=== PATIENT | female | born 1960 | race Caucasian/White ===

== ENCOUNTER 2016-03-14 19:07 | Inpatient (IN) | payer MEDICARE, MEDICAID ==
[~2016-03-14] VITALS: Ht 165.1 cm; Wt 109.1 kg
[~2016-03-14 19:07] MED LIST: DULO60CA44 PO; GABA-531 PO; OMEP20 PO; TRAZ-147 PO
[2016-03-14 20:13] LABS: BASOPHILS % (AUTO) 1.1 % (0.0-2.0); HEMATOCRIT 40.7 % (36-46); HEMOGLOBIN 13.4 g/dL (12.0-16.0); LYMPHOCYTES # (AUTO) 1.3 K/uL (1.0-4.8); LYMPHOCYTES % (AUTO) 26.5 % (22.0-44.0); MEAN CORPUSCULAR HEMOGLOBIN 29.7 pg (26.0-34.0); MEAN CORPUSCULAR HGB CONC 32.9 G/dL (31.0-37.0); MEAN CORPUSCULAR VOLUME 90 fL (80-100); MONOCYTES # (AUTO) 0.4 K/uL (0.1-1.0); MONOCYTES % (AUTO) 7.9 % (2.0-9.0); NEUTROPHILS % (AUTO) 61.5 % (40.0-70.0); PLATELET COUNT (AUTO) 134 K/uL (150-450); RED BLOOD CELL COUNT(AUTO) 4.51 MIL/uL (4.00-5.20); RED CELL DISTRIBUTION WIDTH 13.6 % (11.5-14.5); WHITE BLOOD COUNT (AUTO) 4.9 K/uL (4.5-11.0)
[2016-03-14] MEDS ORDERED: LORazepam 2 MG TABLET PO PRN (20:15)
[2016-03-14] MEDS ORDERED: HALOPERIDOL 5 MG TABLET PO PRN (20:15)
[2016-03-14] MEDS ORDERED: ZOLPIDEM TARTRATE 10 MG TABLET PO PRN (20:15)
[2016-03-14 20:18] LABS: ANION GAP 5 mmol/L (8-16); CALCIUM, TOTAL 8.7 mg/dL (8.8-10.5); CARBON DIOXIDE 29 mmol/L (22-29); CHLORIDE 105 mmol/L (98-107); CREATININE 0.79 mg/dL (0.60-1.30); GLOMERULAR FILTR. RATE CALC > 60 mL/min (>60); POTASSIUM 3.6 mmol/L (3.5-5.1); SODIUM SERUM 139 mmol/L (136-145); UREA NITROGEN, BLOOD 21 mg/dL (7-18)
[2016-03-14 20:23] LABS: ALANINE AMINOTRANSFERASE 24 U/L (12-78); ALBUMIN 3.5 g/dL (3.4-5.0); ASPARTATE AMINOTRANSFERASE 24 U/L (15-37); BILIRUBIN,TOTAL 0.4 mg/dL (0.1-1.0); TOTAL PROTEIN, SERUM 6.5 g/dL (6.4-8.2)
[2016-03-15 10:44] VITALS: BP 119/64
[2016-03-15] MEDS ORDERED: ACETAMINOPHEN 325 MG TABLET PO PRN (15:15)
[2016-03-15] MEDS ORDERED: IBUPROFEN 400 MG TABLET PO PRN (15:15)
[2016-03-15] MEDS ORDERED: INSULIN ASPART 100 UNITS/ML SQ PRN (15:15)
[2016-03-15] MEDS ORDERED: DEXTROSE 50%-WATER 25 GM/50 ML SYRINGE IVP PRN (15:15)
[2016-03-15 17:22] LABS: GLUCOSE,POINT OF CARE 82 MG/DL (70-110)
[2016-03-15 19:55] LABS: GLUCOSE,POINT OF CARE 107 MG/DL (70-110)
[2016-03-16 05:08] LABS: GLUCOSE,POINT OF CARE 90 MG/DL (70-110)
[2016-03-16 05:31] LABS: THYROID STIMULATING HORMONE 0.71 uIU/mL (0.36-3.74)
[2016-03-16 07:26] LABS: HEMOGLOBIN A1C 5.4 % (4.5-6.2)
[2016-03-16] MEDS: OMEPRAZOLE 20 MG CAPSULE PO SCH (09:00)
[2016-03-16 11:56] LABS: GLUCOSE,POINT OF CARE 106 MG/DL (70-110)
[2016-03-16] MEDS ORDERED: HALOPERIDOL LACTATE 5 MG/ML VIAL IM ONE (13:45)
[2016-03-16] MEDS ORDERED: DiphenhydrAMINE HCL 50 MG/ML VIAL IM ONE (13:45)
[2016-03-16] MEDS ORDERED: LORazepam 2 MG/ML VIAL IM ONE (13:45)
[2016-03-16 16:43] VITALS: BP 120/69
[2016-03-16 17:31] LABS: GLUCOSE,POINT OF CARE 95 MG/DL (70-110)
[2016-03-17 05:21] LABS: GLUCOSE COMMENT 1 Juice/Food/D50 Given; GLUCOSE,POINT OF CARE 87 MG/DL (70-110)
[2016-03-17 05:31] VITALS: BP 108/61
[2016-03-17] MEDS: OMEPRAZOLE 20 MG CAPSULE PO SCH (09:00)
[2016-03-17 11:26] LABS: GLUCOSE,POINT OF CARE 105 MG/DL (70-110)
[2016-03-17] MEDS ORDERED: GABAPENTIN 300 MG CAPSULE PO SCH (16:00)
[2016-03-17] MEDS ORDERED: TraZODone HCL 100 MG TABLET PO SCH (21:00)
[2016-03-18] MEDS ORDERED: DULoxetine HCL 60 MG CAPSULE PO SCH (09:00)
== END 2016-03-17 14:00 | disposition home or self-care (01) | DRG 885 ==
LOC: EMS 19:10 → AHU 03-15 08:38
DX: F25.0 Schizoaffective disorder, bipolar type (principal); R45.851 Suicidal ideations; Z68.41 Body mass index [BMI] 40.0-44.9, adult; E66.9 Obesity, unspecified; E73.9 Lactose intolerance, unspecified; F19.10 Other psychoactive substance abuse, uncomplicated; E11.9 Type 2 diabetes mellitus without complications; J40 Bronchitis, not specified as acute or chronic; K21.9 Gastro-esophageal reflux disease without esophagitis; Z79.899 Other long term (current) drug therapy; Z98.890 Other specified postprocedural states; Z88.5 Allergy status to narcotic agent; Z83.3 Family history of diabetes mellitus
CPT/HCPCS: 82962; 83036; 84443; 87081; 99285; G0480; J1200; J1630; J2060

== ENCOUNTER 2016-03-28 18:01 | Inpatient (IN) | payer MEDICARE, MEDICAID ==
[~2016-03-28] VITALS: Ht 160 cm; Wt 114.1 kg
[2016-03-28 18:36] LABS: BASOPHILS % (AUTO) 1.2 % (0.0-2.0); EOSINOPHILS % (AUTO) 3.8 % (1.0-6.0); HEMATOCRIT 42.1 % (36-46); HEMOGLOBIN 13.8 g/dL (12.0-16.0); LYMPHOCYTES # (AUTO) 1.3 K/uL (1.0-4.8); LYMPHOCYTES % (AUTO) 24.4 % (22.0-44.0); MEAN CORPUSCULAR HEMOGLOBIN 29.4 pg (26.0-34.0); MEAN CORPUSCULAR HGB CONC 32.8 G/dL (31.0-37.0); MEAN CORPUSCULAR VOLUME 90 fL (80-100); MONOCYTES # (AUTO) 0.4 K/uL (0.1-1.0); MONOCYTES % (AUTO) 8.4 % (2.0-9.0); NEUTROPHILS # (AUTO) 3.3 K/uL (1.8-7.7); NEUTROPHILS % (AUTO) 62.2 % (40.0-70.0); PLATELET COUNT (AUTO) 135 K/uL (150-450); RED CELL DISTRIBUTION WIDTH 14.4 % (11.5-14.5); WHITE BLOOD COUNT (AUTO) 5.3 K/uL (4.5-11.0)
[2016-03-28 18:44] LABS: ANION GAP 4 mmol/L (8-16); CALCIUM, TOTAL 8.8 mg/dL (8.8-10.5); CARBON DIOXIDE 32 mmol/L (22-29); CHLORIDE 107 mmol/L (98-107); CREATININE 0.91 mg/dL (0.60-1.30); GLOMERULAR FILTR. RATE CALC > 60 mL/min (>60); POTASSIUM 3.9 mmol/L (3.5-5.1); SODIUM SERUM 143 mmol/L (136-145); UREA NITROGEN, BLOOD 17 mg/dL (7-18)
[2016-03-28 18:50] LABS: ALANINE AMINOTRANSFERASE 26 U/L (12-78); ALBUMIN 3.3 g/dL (3.4-5.0); ASPARTATE AMINOTRANSFERASE 21 U/L (15-37); BILIRUBIN,TOTAL 0.3 mg/dL (0.1-1.0); TOTAL PROTEIN, SERUM 6.4 g/dL (6.4-8.2)
[2016-03-28 19:05] LABS: GLUCOSE,POINT OF CARE 93 MG/DL (70-110)
[2016-03-28] MEDS ORDERED: ZOLPIDEM TARTRATE 10 MG TABLET PO PRN (20:30)
[2016-03-28] MEDS ORDERED: HALOPERIDOL 5 MG TABLET PO PRN (20:30)
[2016-03-28] MEDS ORDERED: LORazepam 2 MG TABLET PO PRN (20:30)
[2016-03-28] MEDS ORDERED: LORazepam 2 MG TABLET PO ONE (21:15)
[2016-03-28] MEDS ORDERED: HALOPERIDOL 5 MG TABLET PO ONE (21:15)
[2016-03-28] MEDS: TraZODone HCL 100 MG TABLET PO SCH (21:31)
[2016-03-28] MEDS: GABAPENTIN 300 MG CAPSULE PO SCH (21:31)
[2016-03-28 21:39] VITALS: BP 131/81
[2016-03-29 05:21] LABS: GLUCOSE,POINT OF CARE 82 MG/DL (70-110)
[2016-03-29] MEDS ORDERED: ACETAMINOPHEN 325 MG TABLET PO PRN (07:15)
[2016-03-29 08:00] VITALS: BP 111/75
[2016-03-29] MEDS: GABAPENTIN 300 MG CAPSULE PO SCH ×3 (08:10→16:33)
[2016-03-29] MEDS: OMEPRAZOLE 20 MG CAPSULE PO SCH (08:10)
[2016-03-29] MEDS ORDERED: OMEPRAZOLE 20 MG CAPSULE PO SCH (09:00)
[2016-03-29] MEDS ORDERED: DULoxetine HCL 20 MG CAPSULE PO SCH (09:00)
[2016-03-29 16:30] LABS: GLUCOSE,POINT OF CARE 98 MG/DL (70-110)
[2016-03-29] MEDS: TOPIRAMATE 25 MG TABLET PO SCH (16:33)
[2016-03-29 18:08] VITALS: BP 121/78
[2016-03-29] MEDS: TraZODone HCL 100 MG TABLET PO SCH (20:20)
[2016-03-30 05:16] LABS: GLUCOSE,POINT OF CARE 99 MG/DL (70-110)
[2016-03-30 05:23] VITALS: BP 127/66
[2016-03-30 07:20] LABS: HEMOGLOBIN A1C 5.5 % (4.5-6.2)
[2016-03-30 07:31] LABS: CHOL/HDL RATIO 2.8 (3.9-5.7); THYROID STIMULATING HORMONE 1.26 uIU/mL (0.36-3.74)
[2016-03-30] MEDS: OMEPRAZOLE 20 MG CAPSULE PO SCH (08:10)
[2016-03-30] MEDS: GABAPENTIN 300 MG CAPSULE PO SCH ×3 (08:10→16:01)
[2016-03-30] MEDS: TOPIRAMATE 25 MG TABLET PO SCH ×2 (08:10→16:01)
[2016-03-30] MEDS: DULoxetine HCL 60 MG CAPSULE PO SCH (08:16)
[2016-03-30 09:20] VITALS: BP 101/65
[2016-03-30] MEDS: IBUPROFEN 400 MG TABLET PO PRN (09:21)
[2016-03-30 16:31] LABS: GLUCOSE,POINT OF CARE 73 MG/DL (70-110)
[2016-03-30] MEDS: TraZODone HCL 100 MG TABLET PO SCH (20:03)
[2016-03-31 05:25] LABS: GLUCOSE,POINT OF CARE 111 MG/DL (70-110)
[2016-03-31 08:05] VITALS: BP 107/70
[2016-03-31] MEDS: GABAPENTIN 300 MG CAPSULE PO SCH ×3 (09:00→16:48)
[2016-03-31] MEDS: OMEPRAZOLE 20 MG CAPSULE PO SCH (09:00)
[2016-03-31] MEDS: TOPIRAMATE 25 MG TABLET PO SCH ×2 (09:01→16:48)
[2016-03-31] MEDS: DULoxetine HCL 60 MG CAPSULE PO SCH (09:04)
[2016-03-31] MEDS: IBUPROFEN 400 MG TABLET PO PRN (09:12)
[2016-03-31 09:54] LABS: GLUCOSE, URINE (UA) NEGATIVE (NEGATIVE); KETONES,URINE NEGATIVE (NEGATIVE); LEUKOCYTE ESTERASE ,URINE NEGATIVE (NEGATIVE); OCCULT BLOOD,URINE NEGATIVE (NEGATIVE); PH,URINE 7.5 (5.0-8.0); PROTEIN,URINE NEGATIVE (NEGATIVE)
[2016-03-31 10:08] LABS: ADD UA MICROSCOPIC NO; APPEARANCE,URINE CLEAR (CLEAR)
[2016-03-31] MEDS ORDERED: INFLUENZA VIRUS VACCINE QVS 2016-17 (3YR+)/PF 60 MCG/0.5 ML SYRINGE IM ONE (14:15)
[2016-03-31 16:00] VITALS: BP 127/71
[2016-03-31 17:02] LABS: GLUCOSE,POINT OF CARE 101 MG/DL (70-110)
[2016-03-31] MEDS: TraZODone HCL 100 MG TABLET PO SCH (20:26)
[2016-04-01 06:07] LABS: GLUCOSE,POINT OF CARE 108 MG/DL (70-110)
[2016-04-01 08:15] VITALS: BP 140/86
[2016-04-01] MEDS: OMEPRAZOLE 20 MG CAPSULE PO SCH (09:15)
[2016-04-01] MEDS: GABAPENTIN 300 MG CAPSULE PO SCH ×3 (09:15→16:36)
[2016-04-01] MEDS: TOPIRAMATE 25 MG TABLET PO SCH ×2 (09:16→16:36)
[2016-04-01] MEDS: DULoxetine HCL 60 MG CAPSULE PO SCH (09:24)
[2016-04-01] MEDS: IBUPROFEN 400 MG TABLET PO PRN (09:38)
[2016-04-01 16:45] LABS: GLUCOSE,POINT OF CARE 77 MG/DL (70-110)
[2016-04-01 17:00] VITALS: BP 114/71
[2016-04-01] MEDS: TraZODone HCL 100 MG TABLET PO SCH (20:07)
[2016-04-02 05:46] LABS: GLUCOSE,POINT OF CARE 111 MG/DL (70-110)
[2016-04-02 08:05] VITALS: BP 119/73
[2016-04-02] MEDS: TOPIRAMATE 25 MG TABLET PO SCH ×2 (09:02→16:00)
[2016-04-02] MEDS: GABAPENTIN 300 MG CAPSULE PO SCH ×3 (09:02→16:00)
[2016-04-02] MEDS: OMEPRAZOLE 20 MG CAPSULE PO SCH (09:02)
[2016-04-02] MEDS: DULoxetine HCL 60 MG CAPSULE PO SCH (09:06)
[2016-04-02] MEDS ORDERED: ARIPiprazole LAUROXIL ER SUSPENSION 662 MG/2.4 ML SYRINGE IM SCH (11:00)
[2016-04-02 16:10] LABS: GLUCOSE,POINT OF CARE 104 MG/DL (70-110)
[2016-04-02 18:50] VITALS: BP 129/69
[2016-04-02 20:03] VITALS: BP 123/74
[2016-04-02] MEDS: TraZODone HCL 100 MG TABLET PO SCH (20:12)
[2016-04-03 05:37] LABS: GLUCOSE,POINT OF CARE 107 MG/DL (70-110)
[2016-04-03 06:30] VITALS: BP 112/65
[2016-04-03 08:05] VITALS: BP 129/89
[2016-04-03] MEDS: TOPIRAMATE 25 MG TABLET PO SCH ×2 (09:05→16:24)
[2016-04-03] MEDS: OMEPRAZOLE 20 MG CAPSULE PO SCH (09:05)
[2016-04-03] MEDS: GABAPENTIN 300 MG CAPSULE PO SCH ×3 (09:05→16:24)
[2016-04-03] MEDS: DULoxetine HCL 60 MG CAPSULE PO SCH (09:08)
[2016-04-03] MEDS: IBUPROFEN 400 MG TABLET PO PRN (09:12)
[2016-04-03 16:42] LABS: GLUCOSE,POINT OF CARE 127 MG/DL (70-110)
[2016-04-03 18:47] VITALS: BP 120/66
[2016-04-03] MEDS: TraZODone HCL 100 MG TABLET PO SCH (20:05)
[2016-04-04 05:42] LABS: GLUCOSE,POINT OF CARE 110 MG/DL (70-110)
[2016-04-04 07:02] VITALS: BP 115/70
[2016-04-04 08:00] VITALS: BP 136/78
[2016-04-04] MEDS: OMEPRAZOLE 20 MG CAPSULE PO SCH (08:24)
[2016-04-04] MEDS: GABAPENTIN 300 MG CAPSULE PO SCH ×3 (08:24→16:26)
[2016-04-04] MEDS: TOPIRAMATE 25 MG TABLET PO SCH ×2 (08:24→16:26)
[2016-04-04] MEDS: DULoxetine HCL 60 MG CAPSULE PO SCH (08:24)
[2016-04-04 16:17] LABS: GLUCOSE,POINT OF CARE 96 MG/DL (70-110)
[2016-04-04 16:55] VITALS: BP 126/73
[2016-04-04] MEDS: TraZODone HCL 100 MG TABLET PO SCH (20:05)
[2016-04-05 05:28] LABS: GLUCOSE,POINT OF CARE 104 MG/DL (70-110)
[2016-04-05 06:30] VITALS: BP 122/75
[2016-04-05] MEDS: TOPIRAMATE 25 MG TABLET PO SCH ×2 (09:16→16:03)
[2016-04-05] MEDS: OMEPRAZOLE 20 MG CAPSULE PO SCH (09:16)
[2016-04-05] MEDS: GABAPENTIN 300 MG CAPSULE PO SCH ×3 (09:16→16:02)
[2016-04-05] MEDS: DULoxetine HCL 60 MG CAPSULE PO SCH (09:31)
[2016-04-05 16:12] LABS: GLUCOSE,POINT OF CARE 86 MG/DL (70-110)
[2016-04-05 16:40] VITALS: BP 124/60
[2016-04-05] MEDS: TraZODone HCL 100 MG TABLET PO SCH (20:05)
[2016-04-06 05:47] LABS: GLUCOSE,POINT OF CARE 105 MG/DL (70-110)
[2016-04-06 06:54] VITALS: BP 116/64
[2016-04-06 08:10] VITALS: BP 137/89
[2016-04-06] MEDS: GABAPENTIN 300 MG CAPSULE PO SCH ×3 (08:19→16:22)
[2016-04-06] MEDS: DULoxetine HCL 60 MG CAPSULE PO SCH (08:20)
[2016-04-06] MEDS: TOPIRAMATE 25 MG TABLET PO SCH ×2 (08:20→16:22)
[2016-04-06] MEDS: OMEPRAZOLE 20 MG CAPSULE PO SCH (08:20)
[2016-04-06 16:33] VITALS: BP 128/74
[2016-04-06 16:46] LABS: GLUCOSE,POINT OF CARE 107 MG/DL (70-110)
[2016-04-06] MEDS: TraZODone HCL 100 MG TABLET PO SCH (20:23)
[2016-04-07 05:52] LABS: GLUCOSE,POINT OF CARE 93 MG/DL (70-110)
[2016-04-07 06:42] VITALS: BP 107/65
[2016-04-07 08:00] VITALS: BP 108/68
[2016-04-07] MEDS: OMEPRAZOLE 20 MG CAPSULE PO SCH (08:20)
[2016-04-07] MEDS: GABAPENTIN 300 MG CAPSULE PO SCH ×2 (08:20→13:10)
[2016-04-07] MEDS: TOPIRAMATE 25 MG TABLET PO SCH (08:20)
[2016-04-07] MEDS: DULoxetine HCL 60 MG CAPSULE PO SCH (08:55)
[2016-04-07] MEDS ORDERED: TOPI25 PO (15:13)
[2016-04-07] MEDS ORDERED: ARIP662S IM (15:14)
[2016-04-07] MEDS ORDERED: OMEP20 PO (15:21)
== END 2016-04-07 16:00 | disposition home or self-care (01) | DRG 885 ==
LOC: EMS 18:08 → EEVIPCON 18:08 → 3EX 20:30
DX: F25.0 Schizoaffective disorder, bipolar type (principal); R45.851 Suicidal ideations; Z68.41 Body mass index [BMI] 40.0-44.9, adult; D69.6 Thrombocytopenia, unspecified; E11.9 Type 2 diabetes mellitus without complications; E66.9 Obesity, unspecified; F17.210 Nicotine dependence, cigarettes, uncomplicated; F41.9 Anxiety disorder, unspecified; G47.00 Insomnia, unspecified; J40 Bronchitis, not specified as acute or chronic; F19.10 Other psychoactive substance abuse, uncomplicated; K21.9 Gastro-esophageal reflux disease without esophagitis; Z71.6 Tobacco abuse counseling; Z28.21 Immunization not carried out because of patient refusal; Z79.899 Other long term (current) drug therapy; Z98.890 Other specified postprocedural states; Z87.898 Personal history of other specified conditions; Z72.89 Other problems related to lifestyle; Z83.3 Family history of diabetes mellitus
CPT/HCPCS: 80307; 82962; 83036; 84443; 87081; 99285; G0480

== ENCOUNTER 2016-04-09 14:47 | Emergency (ER) | payer MEDICARE, OTHER ==
[~2016-04-09] VITALS: Ht 170.2 cm; Wt 88.6 kg
[~2016-04-09 14:47] MED LIST changes: +ARIP662S IM; +TOPI25 PO
[2016-04-09] MEDS ORDERED: KETOROLAC TROMETHAMINE 60 MG/2 ML VIAL IM ONE (17:15)
[2016-04-09] MEDS ORDERED: METHOCARBAMOL 500 MG TABLET PO ONE (17:15)
[2016-04-09 18:36] VITALS: BP 121/62
== END 2016-04-09 19:20 | disposition home or self-care (01) ==
LOC: EMS 14:48
DX: S40.012A Contusion of left shoulder, initial encounter (principal); S50.02XA Contusion of left elbow, initial encounter; E11.9 Type 2 diabetes mellitus without complications; Z88.5 Allergy status to narcotic agent; Z91.011 Allergy to milk products; W01.0XXA Fall on same level from slipping, tripping and stumbling without subsequent striking against object, initial encounter; Y93.89 Activity, other specified; Y92.89 Other specified places as the place of occurrence of the external cause; Y99.8 Other external cause status
CPT/HCPCS: 29105; 73030; 96372; 99284; J1885

== ENCOUNTER 2019-04-21 10:24 | Inpatient (IN) | payer MEDICARE, MEDICAID ==
[~2019-04-21] VITALS: Ht 157.5 cm; Wt 126.3 kg
[~2019-04-21 10:24] MED LIST changes: -TRAZ-147 PO; +TRAZ-257 PO
[2019-04-21] MEDS ORDERED: MIRT-92 PO (11:55)
[2019-04-21] MEDS ORDERED: CELE100 PO (11:55)
[2019-04-21] MEDS ORDERED: QUET100T PO (11:55)
[2019-04-21] MEDS ORDERED: BENZ1TAB10 PO (11:55)
[2019-04-21] MEDS ORDERED: HALO10 PO (11:55)
[2019-04-21] MEDS ORDERED: ATOR20TA86 PO (11:55)
[2019-04-21] MEDS ORDERED: VENL-193 PO (11:55)
[2019-04-21 15:10] VITALS: BP 128/88
[2019-04-21] MEDS ORDERED: GLUCAGON,HUMAN RECOMBINANT 1 MG VIAL IM PRN (15:15)
[2019-04-21 16:11] VITALS: BP 113/75
[2019-04-21 16:53] LABS: GLUCOMETER DEV NAME(LOC) BV2X.; GLUCOSE,POINT OF CARE 76 MG/DL (70-110)
[2019-04-21] MEDS ORDERED: NICOTINE 14 MG/24 HOUR PATCH TD PRN ×2 (17:00→21:00)
[2019-04-21] MEDS ORDERED: CloNIDine HCL 0.1 MG TABLET PO PRN ×2 (17:00→21:00)
[2019-04-21] MEDS ORDERED: ONDANSETRON HCL 4 MG TABLET PO PRN ×2 (17:00→21:00)
[2019-04-21] MEDS ORDERED: GuaiFENesin/D-METHORPHAN [SUGAR-FREE] 200-20MG/10 ML SYRUP UDCUP PO PRN ×2 (17:00→21:00)
[2019-04-21] MEDS ORDERED: MAGNESIUM HYDROXIDE SUSPENSION 30 ML UDCUP PO PRN ×2 (17:00→21:00)
[2019-04-21] MEDS ORDERED: PETROLATUM,WHITE 28 GM JELLY TP PRN ×2 (17:00→21:00)
[2019-04-21] MEDS ORDERED: MAG HYDROX/AL HYDROX/SIMETH ES 30 ML SUSPENSION UDCUP PO PRN ×2 (17:00→21:00)
[2019-04-21] MEDS ORDERED: ALBUTEROL SULFATE HFA 90 MCG/PUFF 8 GM INHALER IH PRN ×2 (17:00→21:00)
[2019-04-21] MEDS ORDERED: ACETAMINOPHEN 325 MG TABLET PO PRN ×2 (17:00→21:00)
[2019-04-21 20:34] LABS: GLUCOMETER DEV NAME(LOC) BV2X.; GLUCOSE,POINT OF CARE 129 MG/DL (70-110)
[2019-04-21] MEDS ORDERED: DOCUSATE SODIUM 100 MG CAPSULE PO PRN (21:00)
[2019-04-21] MEDS ORDERED: LOPERAMIDE HCL 2 MG CAPSULE PO PRN (21:00)
[2019-04-22 00:30] VITALS: BP 140/78
[2019-04-22] MEDS ORDERED: INFLUENZA VIRUS VACCINE QVS 2019-20 (3YR+)/PF 60 MCG/0.5 ML SYRINGE IM ONE (01:15)
[2019-04-22] MEDS ORDERED: -PHARMACY VACCINE NOTE- MISC ONE (05:15)
[2019-04-22 08:10] VITALS: BP 127/74
[2019-04-22] MEDS: OMEPRAZOLE 20 MG CAPSULE PO SCH (08:39)
[2019-04-22] MEDS: ATORVASTATIN CALCIUM 20 MG TABLET PO SCH (08:39)
[2019-04-22] MEDS: IBUPROFEN 400 MG TABLET PO PRN (08:39)
[2019-04-22 11:46] LABS: GLUCOMETER DEV NAME(LOC) BV2X.; GLUCOSE,POINT OF CARE 112 MG/DL (70-110)
[2019-04-22] MEDS: LORazepam 2 MG TABLET PO PRN (11:57)
[2019-04-22] MEDS: CELECOXIB 100 MG CAPSULE PO SCH (11:58)
[2019-04-22] MEDS: VENLAFAXINE HCL 150 MG ER CAPSULE PO SCH (13:21)
[2019-04-22] MEDS: BENZTROPINE MESYLATE 1 MG TABLET PO SCH (13:21)
[2019-04-22 16:21] VITALS: BP 122/70
[2019-04-22 16:58] LABS: GLUCOMETER DEV NAME(LOC) BV2X.; GLUCOSE,POINT OF CARE 124 MG/DL (70-110)
[2019-04-22] MEDS: MIRTAZAPINE 15 MG TABLET PO SCH (20:19)
[2019-04-22] MEDS: QUEtiapine FUMARATE 100 MG TABLET PO SCH (20:19)
[2019-04-22] MEDS: TraZODone HCL 100 MG TABLET PO SCH (20:19)
[2019-04-22] MEDS: PRAZOSIN HCL 1 MG CAPSULE PO SCH (20:19)
[2019-04-22 21:03] VITALS: BP 140/74
[2019-04-23 00:37] VITALS: BP 125/72
[2019-04-23] MEDS: LORazepam 2 MG TABLET PO PRN ×3 (05:43→15:49)
[2019-04-23 07:14] LABS: GLUCOMETER DEV NAME(LOC) BV2X.; GLUCOSE,POINT OF CARE 108 MG/DL (70-110)
[2019-04-23 08:48] VITALS: BP 122/71
[2019-04-23] MEDS: ATORVASTATIN CALCIUM 20 MG TABLET PO SCH (08:49)
[2019-04-23] MEDS: VENLAFAXINE HCL 150 MG ER CAPSULE PO SCH (08:49)
[2019-04-23] MEDS: CELECOXIB 100 MG CAPSULE PO SCH (08:49)
[2019-04-23] MEDS: BENZTROPINE MESYLATE 1 MG TABLET PO SCH (08:50)
[2019-04-23] MEDS: OMEPRAZOLE 20 MG CAPSULE PO SCH (08:51)
[2019-04-23] MEDS: HALOPERIDOL 5 MG TABLET PO PRN ×2 (10:41→15:49)
[2019-04-23] MEDS ORDERED: VENL-67 PO (12:49)
[2019-04-23] MEDS: BACITRACIN 28.4 GM OINTMENT TP SCH ×2 (13:29→17:21)
[2019-04-23 13:45] LABS: GLUCOMETER DEV NAME(LOC) BV2X.; GLUCOSE,POINT OF CARE 121 MG/DL (70-110)
[2019-04-23] MEDS ORDERED: OLANZapine 10 MG RAPDIS TABLET ONE (14:19)
[2019-04-23] MEDS ORDERED: OLANZapine 10 MG TABLET PO STA (14:20)
[2019-04-23 16:06] VITALS: BP 117/75
[2019-04-23 16:31] LABS: GLUCOMETER DEV NAME(LOC) BV2X.; GLUCOSE,POINT OF CARE 116 MG/DL (70-110)
[2019-04-23] MEDS: MIRTAZAPINE 15 MG TABLET PO SCH (20:04)
[2019-04-23] MEDS: QUEtiapine FUMARATE 100 MG TABLET PO SCH (20:04)
[2019-04-23] MEDS: TraZODone HCL 100 MG TABLET PO SCH (20:05)
[2019-04-23] MEDS: PRAZOSIN HCL 1 MG CAPSULE PO SCH (20:14)
[2019-04-23 20:30] LABS: GLUCOMETER DEV NAME(LOC) BV2X.; GLUCOSE,POINT OF CARE 128 MG/DL (70-110)
[2019-04-24 06:13] VITALS: BP 132/80
[2019-04-24 06:19] LABS: GLUCOMETER DEV NAME(LOC) BV2X.; GLUCOSE,POINT OF CARE 105 MG/DL (70-110)
[2019-04-24 07:44] LABS: CHOL/HDL RATIO 2.2 (3.9-5.7)
[2019-04-24 08:15] VITALS: BP 121/79
[2019-04-24] MEDS: LORazepam 2 MG TABLET PO PRN ×2 (08:31→18:34)
[2019-04-24] MEDS: HALOPERIDOL 5 MG TABLET PO PRN ×2 (08:31→21:13)
[2019-04-24] MEDS: CELECOXIB 100 MG CAPSULE PO SCH (08:53)
[2019-04-24] MEDS: BACITRACIN 28.4 GM OINTMENT TP SCH ×2 (08:53→16:28)
[2019-04-24] MEDS: OMEPRAZOLE 20 MG CAPSULE PO SCH (08:54)
[2019-04-24] MEDS: VENLAFAXINE HCL 150 MG ER CAPSULE PO SCH (08:54)
[2019-04-24] MEDS: BENZTROPINE MESYLATE 1 MG TABLET PO SCH (08:54)
[2019-04-24] MEDS: ATORVASTATIN CALCIUM 20 MG TABLET PO SCH (08:54)
[2019-04-24] MEDS: INSULIN LISPRO 100 UNITS/ML SQ PRN ×2 (11:40→17:01)
[2019-04-24 11:43] LABS: GLUCOMETER DEV NAME(LOC) BV2X.; GLUCOSE,POINT OF CARE 196 MG/DL (70-110)
[2019-04-24 16:07] VITALS: BP 132/78
[2019-04-24 16:47] LABS: GLUCOMETER DEV NAME(LOC) BV2X.; GLUCOSE,POINT OF CARE 164 MG/DL (70-110)
[2019-04-24 20:22] LABS: GLUCOMETER DEV NAME(LOC) BV2X.; GLUCOSE,POINT OF CARE 138 MG/DL (70-110)
[2019-04-24] MEDS: QUEtiapine FUMARATE 100 MG TABLET PO SCH (20:26)
[2019-04-24] MEDS: TraZODone HCL 100 MG TABLET PO SCH (20:28)
[2019-04-24] MEDS: MIRTAZAPINE 15 MG TABLET PO SCH (20:29)
[2019-04-24] MEDS: PRAZOSIN HCL 1 MG CAPSULE PO SCH (20:29)
[2019-04-24] MEDS ORDERED: PRAZOSIN HCL 1 MG CAPSULE PO SCH (21:00)
[2019-04-25 05:21] VITALS: BP 131/85
[2019-04-25 05:40] LABS: GLUCOMETER DEV NAME(LOC) BV2X.; GLUCOSE,POINT OF CARE 101 MG/DL (70-110)
[2019-04-25 08:34] VITALS: BP 110/71
[2019-04-25] MEDS: CELECOXIB 100 MG CAPSULE PO SCH (09:32)
[2019-04-25] MEDS: LORazepam 2 MG TABLET PO PRN (09:33)
[2019-04-25] MEDS: HALOPERIDOL 5 MG TABLET PO PRN (09:33)
[2019-04-25] MEDS: OMEPRAZOLE 20 MG CAPSULE PO SCH (09:33)
[2019-04-25] MEDS: DOCUSATE SODIUM 100 MG CAPSULE PO PRN (09:33)
[2019-04-25] MEDS: ATORVASTATIN CALCIUM 20 MG TABLET PO SCH (09:33)
[2019-04-25] MEDS: BENZTROPINE MESYLATE 1 MG TABLET PO SCH (09:33)
[2019-04-25] MEDS: VENLAFAXINE HCL 150 MG ER CAPSULE PO SCH (09:33)
[2019-04-25] MEDS: BACITRACIN 28.4 GM OINTMENT TP SCH ×2 (10:31→16:12)
[2019-04-25 11:19] LABS: GLUCOMETER DEV NAME(LOC) BV2X.; GLUCOSE,POINT OF CARE 98 MG/DL (70-110)
[2019-04-25 16:47] VITALS: BP 120/72
[2019-04-25 18:35] LABS: GLUCOMETER DEV NAME(LOC) BV2X.; GLUCOSE,POINT OF CARE 127 MG/DL (70-110)
[2019-04-25] MEDS: TraZODone HCL 100 MG TABLET PO SCH (20:11)
[2019-04-25] MEDS: MIRTAZAPINE 15 MG TABLET PO SCH (20:11)
[2019-04-25] MEDS: PRAZOSIN HCL 1 MG CAPSULE PO SCH (20:12)
[2019-04-25] MEDS: QUEtiapine FUMARATE 100 MG TABLET PO SCH (20:14)
[2019-04-25 20:15] VITALS: BP 113/76
[2019-04-25 20:23] LABS: GLUCOMETER DEV NAME(LOC) BV2X.; GLUCOSE,POINT OF CARE 94 MG/DL (70-110)
[2019-04-26 06:13] VITALS: BP 127/90
[2019-04-26 06:31] LABS: GLUCOMETER DEV NAME(LOC) BV2X.; GLUCOSE,POINT OF CARE 78 MG/DL (70-110)
[2019-04-26] MEDS: BENZTROPINE MESYLATE 1 MG TABLET PO SCH (08:11)
[2019-04-26] MEDS: ATORVASTATIN CALCIUM 20 MG TABLET PO SCH (08:11)
[2019-04-26] MEDS: OMEPRAZOLE 20 MG CAPSULE PO SCH (08:11)
[2019-04-26] MEDS: VENLAFAXINE HCL 150 MG ER CAPSULE PO SCH (08:12)
[2019-04-26] MEDS: CELECOXIB 100 MG CAPSULE PO SCH (08:12)
[2019-04-26] MEDS: BACITRACIN 28.4 GM OINTMENT TP SCH ×2 (08:12→16:51)
[2019-04-26 08:17] VITALS: BP 130/73
[2019-04-26 10:58] LABS: GLUCOMETER DEV NAME(LOC) BV2X.; GLUCOSE,POINT OF CARE 99 MG/DL (70-110)
[2019-04-26 16:04] LABS: GLUCOMETER DEV NAME(LOC) BV2X.; GLUCOSE,POINT OF CARE 133 MG/DL (70-110)
[2019-04-26] MEDS: LORazepam 2 MG TABLET PO PRN (16:25)
[2019-04-26 17:39] VITALS: BP 118/84
[2019-04-26 19:46] LABS: GLUCOMETER DEV NAME(LOC) BV2X.; GLUCOSE,POINT OF CARE 138 MG/DL (70-110)
[2019-04-26] MEDS: MIRTAZAPINE 15 MG TABLET PO SCH (20:35)
[2019-04-26] MEDS: PRAZOSIN HCL 1 MG CAPSULE PO SCH (20:36)
[2019-04-26] MEDS: TraZODone HCL 100 MG TABLET PO SCH (20:38)
[2019-04-26] MEDS: QUEtiapine FUMARATE 100 MG TABLET PO SCH (21:28)
[2019-04-27] MEDS: FLUTICASONE PROPIONATE 50 MCG/SPRAY 16 GM NASAL SPRAY NASAL PRN (00:52)
[2019-04-27 01:58] VITALS: BP 114/78
[2019-04-27 06:13] LABS: GLUCOMETER DEV NAME(LOC) BV2X.; GLUCOSE,POINT OF CARE 98 MG/DL (70-110)
[2019-04-27 08:12] VITALS: BP 126/73
[2019-04-27 08:17] LABS: ANION GAP 6 mmol/L (8-16); CALCIUM, TOTAL 8.7 mg/dL (8.8-10.5); CARBON DIOXIDE 31 mmol/L (22-29); CHLORIDE 106 mmol/L (98-107); CREATININE 0.72 mg/dL (0.60-1.30); GLOMERULAR FILTR. RATE CALC > 60 mL/min (>60); GLUCOSE,RANDOM 90 mg/dL (70-110); POTASSIUM 4.4 mmol/L (3.5-5.1); SODIUM SERUM 143 mmol/L (136-145); UREA NITROGEN, BLOOD 20 mg/dL (7-18)
[2019-04-27] MEDS: BENZTROPINE MESYLATE 1 MG TABLET PO SCH (09:19)
[2019-04-27] MEDS: VENLAFAXINE HCL 150 MG ER CAPSULE PO SCH (09:19)
[2019-04-27] MEDS: MULTIVITAMINS WITH MINERALS, THERAPEUTIC TABLET PO SCH (09:19)
[2019-04-27] MEDS: OMEPRAZOLE 20 MG CAPSULE PO SCH (09:19)
[2019-04-27] MEDS: CELECOXIB 100 MG CAPSULE PO SCH (09:19)
[2019-04-27] MEDS: BACITRACIN 28.4 GM OINTMENT TP SCH ×2 (09:20→17:35)
[2019-04-27] MEDS: ATORVASTATIN CALCIUM 20 MG TABLET PO SCH (09:22)
[2019-04-27] MEDS: LOPERAMIDE HCL 2 MG CAPSULE PO PRN (10:18)
[2019-04-27 11:31] LABS: GLUCOMETER DEV NAME(LOC) BV2X.; GLUCOSE,POINT OF CARE 117 MG/DL (70-110)
[2019-04-27 16:12] VITALS: BP 121/69
[2019-04-27 16:29] LABS: GLUCOMETER DEV NAME(LOC) BV2X.; GLUCOSE,POINT OF CARE 102 MG/DL (70-110)
[2019-04-27] MEDS: LORazepam 2 MG TABLET PO PRN (18:41)
[2019-04-27 20:19] LABS: GLUCOMETER DEV NAME(LOC) BV2X.; GLUCOSE,POINT OF CARE 105 MG/DL (70-110)
[2019-04-27 20:26] VITALS: BP 127/82
[2019-04-27] MEDS: TraZODone HCL 100 MG TABLET PO SCH (20:28)
[2019-04-27] MEDS: PRAZOSIN HCL 1 MG CAPSULE PO SCH (20:28)
[2019-04-27] MEDS: MIRTAZAPINE 15 MG TABLET PO SCH (20:28)
[2019-04-27] MEDS: QUEtiapine FUMARATE 100 MG TABLET PO SCH (20:28)
[2019-04-28 06:18] VITALS: BP 122/62
[2019-04-28 06:41] LABS: GLUCOMETER DEV NAME(LOC) BV2X.; GLUCOSE,POINT OF CARE 95 MG/DL (70-110)
[2019-04-28] MEDS: IBUPROFEN 400 MG TABLET PO PRN (06:42)
[2019-04-28 08:37] VITALS: BP 118/66
[2019-04-28] MEDS: BACITRACIN 28.4 GM OINTMENT TP SCH (09:00)
[2019-04-28] MEDS: MULTIVITAMINS WITH MINERALS, THERAPEUTIC TABLET PO SCH (09:20)
[2019-04-28] MEDS: ATORVASTATIN CALCIUM 20 MG TABLET PO SCH (09:20)
[2019-04-28] MEDS: CELECOXIB 100 MG CAPSULE PO SCH (09:20)
[2019-04-28] MEDS: VENLAFAXINE HCL 150 MG ER CAPSULE PO SCH (09:21)
[2019-04-28] MEDS: BENZTROPINE MESYLATE 1 MG TABLET PO SCH (09:21)
[2019-04-28] MEDS: OMEPRAZOLE 20 MG CAPSULE PO SCH (09:21)
[2019-04-28 11:27] LABS: GLUCOMETER DEV NAME(LOC) BV2X.; GLUCOSE,POINT OF CARE 116 MG/DL (70-110)
[2019-04-28 16:19] LABS: GLUCOMETER DEV NAME(LOC) BV2X.; GLUCOSE,POINT OF CARE 105 MG/DL (70-110)
[2019-04-28 16:28] VITALS: BP 129/85
[2019-04-28 20:27] VITALS: BP 113/64
[2019-04-28] MEDS: QUEtiapine FUMARATE 100 MG TABLET PO SCH (20:28)
[2019-04-28] MEDS: PRAZOSIN HCL 1 MG CAPSULE PO SCH (20:28)
[2019-04-28] MEDS: TraZODone HCL 100 MG TABLET PO SCH (20:29)
[2019-04-28] MEDS: MIRTAZAPINE 15 MG TABLET PO SCH (20:29)
[2019-04-28 20:32] LABS: GLUCOMETER DEV NAME(LOC) BV2X.; GLUCOSE,POINT OF CARE 118 MG/DL (70-110)
[2019-04-29 03:54] VITALS: BP 133/79
[2019-04-29 06:32] LABS: GLUCOMETER DEV NAME(LOC) BV2X.; GLUCOSE,POINT OF CARE 86 MG/DL (70-110)
[2019-04-29 08:37] VITALS: BP 137/84
[2019-04-29] MEDS: VENLAFAXINE HCL 150 MG ER CAPSULE PO SCH (09:02)
[2019-04-29] MEDS: ATORVASTATIN CALCIUM 20 MG TABLET PO SCH (09:02)
[2019-04-29] MEDS: BENZTROPINE MESYLATE 1 MG TABLET PO SCH (09:02)
[2019-04-29] MEDS: OMEPRAZOLE 20 MG CAPSULE PO SCH (09:02)
[2019-04-29] MEDS: CELECOXIB 100 MG CAPSULE PO SCH (09:02)
[2019-04-29] MEDS: MULTIVITAMINS WITH MINERALS, THERAPEUTIC TABLET PO SCH (09:56)
[2019-04-29 11:08] LABS: GLUCOMETER DEV NAME(LOC) BV2X.; GLUCOSE,POINT OF CARE 84 MG/DL (70-110)
[2019-04-29] MEDS: DOCUSATE SODIUM 100 MG CAPSULE PO PRN (13:00)
[2019-04-29 16:28] VITALS: BP 115/66
[2019-04-29 16:38] LABS: GLUCOMETER DEV NAME(LOC) BV2X.; GLUCOSE,POINT OF CARE 155 MG/DL (70-110)
[2019-04-29] MEDS: INSULIN LISPRO 100 UNITS/ML SQ PRN (17:06)
[2019-04-29 20:43] VITALS: BP 124/80
[2019-04-29 20:47] LABS: GLUCOMETER DEV NAME(LOC) BV2X.; GLUCOSE,POINT OF CARE 118 MG/DL (70-110)
[2019-04-29] MEDS: TraZODone HCL 100 MG TABLET PO SCH (20:49)
[2019-04-29] MEDS: QUEtiapine FUMARATE 100 MG TABLET PO SCH (20:49)
[2019-04-29] MEDS: PRAZOSIN HCL 1 MG CAPSULE PO SCH (20:49)
[2019-04-29] MEDS: MIRTAZAPINE 15 MG TABLET PO SCH (20:49)
[2019-04-29] MEDS: IBUPROFEN 400 MG TABLET PO PRN (20:49)
[2019-04-30] MEDS: LORazepam 2 MG TABLET PO PRN (00:13)
[2019-04-30] MEDS: ZOLPIDEM TARTRATE 10 MG TABLET PO PRN (00:13)
[2019-04-30 00:14] VITALS: BP 109/68
[2019-04-30 06:20] LABS: GLUCOMETER DEV NAME(LOC) BV2X.; GLUCOSE,POINT OF CARE 100 MG/DL (70-110)
[2019-04-30 08:08] VITALS: BP 120/74
[2019-04-30] MEDS: ATORVASTATIN CALCIUM 20 MG TABLET PO SCH (08:33)
[2019-04-30] MEDS: CELECOXIB 100 MG CAPSULE PO SCH (08:33)
[2019-04-30] MEDS: MULTIVITAMINS WITH MINERALS, THERAPEUTIC TABLET PO SCH (08:33)
[2019-04-30] MEDS: OMEPRAZOLE 20 MG CAPSULE PO SCH (08:33)
[2019-04-30] MEDS: BENZTROPINE MESYLATE 1 MG TABLET PO SCH (08:33)
[2019-04-30] MEDS: VENLAFAXINE HCL 150 MG ER CAPSULE PO SCH (08:34)
[2019-04-30 11:22] LABS: GLUCOMETER DEV NAME(LOC) BV2X.; GLUCOSE,POINT OF CARE 90 MG/DL (70-110)
[2019-04-30 16:17] VITALS: BP 125/74
[2019-04-30 16:47] LABS: GLUCOMETER DEV NAME(LOC) BV2X.; GLUCOSE,POINT OF CARE 138 MG/DL (70-110)
[2019-04-30 20:27] LABS: GLUCOMETER DEV NAME(LOC) BV2X.; GLUCOSE,POINT OF CARE 142 MG/DL (70-110)
[2019-04-30] MEDS: MIRTAZAPINE 15 MG TABLET PO SCH (20:40)
[2019-04-30] MEDS: PRAZOSIN HCL 1 MG CAPSULE PO SCH (20:40)
[2019-04-30] MEDS: QUEtiapine FUMARATE 100 MG TABLET PO SCH (20:40)
[2019-04-30 20:41] VITALS: BP 140/82
[2019-04-30] MEDS: TraZODone HCL 100 MG TABLET PO SCH (20:41)
[2019-04-30] MEDS: INSULIN LISPRO 100 UNITS/ML SQ PRN (20:48)
[2019-05-01 00:22] VITALS: BP 138/78
[2019-05-01] MEDS: FLUTICASONE PROPIONATE 50 MCG/SPRAY 16 GM NASAL SPRAY NASAL PRN (04:09)
[2019-05-01 06:30] VITALS: BP 116/74
[2019-05-01] MEDS: CELECOXIB 100 MG CAPSULE PO SCH (07:00)
[2019-05-01 07:07] LABS: GLUCOMETER DEV NAME(LOC) BV2X.; GLUCOSE,POINT OF CARE 95 MG/DL (70-110)
[2019-05-01 08:29] VITALS: BP 148/85
[2019-05-01] MEDS: VENLAFAXINE HCL 150 MG ER CAPSULE PO SCH (09:37)
[2019-05-01] MEDS: OMEPRAZOLE 20 MG CAPSULE PO SCH (09:37)
[2019-05-01] MEDS: BENZTROPINE MESYLATE 1 MG TABLET PO SCH (09:37)
[2019-05-01] MEDS: ATORVASTATIN CALCIUM 20 MG TABLET PO SCH (09:37)
[2019-05-01] MEDS: MULTIVITAMINS WITH MINERALS, THERAPEUTIC TABLET PO SCH (09:37)
[2019-05-01 11:31] LABS: GLUCOMETER DEV NAME(LOC) BV2X.; GLUCOSE,POINT OF CARE 97 MG/DL (70-110)
[2019-05-01] MEDS: LOPERAMIDE HCL 2 MG CAPSULE PO PRN (13:19)
[2019-05-01 16:20] VITALS: BP 119/63
[2019-05-01 16:24] LABS: GLUCOMETER DEV NAME(LOC) BV2X.; GLUCOSE,POINT OF CARE 140 MG/DL (70-110)
[2019-05-01 20:20] LABS: GLUCOMETER DEV NAME(LOC) BV2X.; GLUCOSE,POINT OF CARE 156 MG/DL (70-110)
[2019-05-01 20:29] VITALS: BP 119/70
[2019-05-01] MEDS: MIRTAZAPINE 15 MG TABLET PO SCH (20:32)
[2019-05-01] MEDS: TraZODone HCL 100 MG TABLET PO SCH (20:33)
[2019-05-01] MEDS: PRAZOSIN HCL 1 MG CAPSULE PO SCH (20:33)
[2019-05-01] MEDS: QUEtiapine FUMARATE 100 MG TABLET PO SCH (20:33)
[2019-05-01] MEDS: INSULIN LISPRO 100 UNITS/ML SQ PRN (20:38)
[2019-05-02 00:38] VITALS: BP 103/64
[2019-05-02] MEDS: IBUPROFEN 400 MG TABLET PO PRN ×2 (01:39→09:58)
[2019-05-02] MEDS: ZOLPIDEM TARTRATE 10 MG TABLET PO PRN (01:39)
[2019-05-02 06:30] VITALS: BP 111/72
[2019-05-02] MEDS: CELECOXIB 100 MG CAPSULE PO SCH (06:44)
[2019-05-02 06:52] LABS: GLUCOMETER DEV NAME(LOC) BV2X.; GLUCOSE,POINT OF CARE 100 MG/DL (70-110)
[2019-05-02] MEDS ORDERED: VENL150C2 PO (08:24)
[2019-05-02] MEDS ORDERED: QUET100T33 PO (08:24)
[2019-05-02] MEDS ORDERED: TRAZ-257 PO (08:24)
[2019-05-02] MEDS ORDERED: BENZ1TAB10 PO (08:24)
[2019-05-02] MEDS ORDERED: MIRT15TA6 PO (08:24)
[2019-05-02] MEDS ORDERED: PRAZ1 PO (08:26)
[2019-05-02 08:30] VITALS: BP 149/92
[2019-05-02] MEDS: MULTIVITAMINS WITH MINERALS, THERAPEUTIC TABLET PO SCH (08:56)
[2019-05-02] MEDS: VENLAFAXINE HCL 150 MG ER CAPSULE PO SCH (08:56)
[2019-05-02] MEDS: OMEPRAZOLE 20 MG CAPSULE PO SCH (08:56)
[2019-05-02] MEDS: ATORVASTATIN CALCIUM 20 MG TABLET PO SCH (08:57)
[2019-05-02] MEDS: BENZTROPINE MESYLATE 1 MG TABLET PO SCH (08:59)
[2019-05-02 11:09] LABS: GLUCOMETER DEV NAME(LOC) BV2X.; GLUCOSE,POINT OF CARE 97 MG/DL (70-110)
== END 2019-05-02 15:02 | disposition home or self-care (01) | DRG 885 ==
LOC: B2X 12:25
DX: F25.1 Schizoaffective disorder, depressive type (principal); F79 Unspecified intellectual disabilities; R45.851 Suicidal ideations; Z23 Encounter for immunization; F43.12 Post-traumatic stress disorder, chronic; E11.9 Type 2 diabetes mellitus without complications; I10 Essential (primary) hypertension; M19.90 Unspecified osteoarthritis, unspecified site; K21.9 Gastro-esophageal reflux disease without esophagitis; E78.5 Hyperlipidemia, unspecified; Z79.899 Other long term (current) drug therapy; Z91.5 Personal history of self-harm; Z88.8 Allergy status to other drugs, medicaments and biological substances; Z91.013 Allergy to seafood
CPT/HCPCS: 83036; 90686

== ENCOUNTER 2021-08-14 19:31 | Inpatient (IN) | payer MEDICARE, MEDICAID ==
[~2021-08-14] VITALS: Ht 157.5 cm; Wt 134.3 kg
[~2021-08-14 19:31] MED LIST changes: -ARIP662S IM; -DULO60CA44 PO; -GABA-531 PO; +LEVO25TA9 PO; +METF-1211 PO; -OMEP20 PO; +PRAZ1 PO; +QUET300T19 PO; -TOPI25 PO
[2021-08-14] MEDS ORDERED: PANT40TA54 PO (19:55)
[2021-08-14] MEDS ORDERED: POTA-92 PO (19:55)
[2021-08-14] MEDS ORDERED: FLUT1AER IH (19:55)
[2021-08-14] MEDS ORDERED: DIVA-112 PO (19:55)
[2021-08-14] MEDS ORDERED: FURO20TA4 PO (19:55)
[2021-08-14] MEDS ORDERED: PRAZ1CAP5 PO (19:55)
[2021-08-14] MEDS ORDERED: GABA-1181 PO (19:55)
[2021-08-14] MEDS ORDERED: ATOR20TA65 PO (19:55)
[2021-08-14] MEDS ORDERED: ALBU6.7H9 IH (19:55)
[2021-08-14 20:21] LABS: COVID AG,FIA SOURCE NASAL SWAB
[2021-08-14 20:35] LABS: EOSINOPHILS % (AUTO) 1.6 % (1.0-6.0); HEMATOCRIT 38.5 % (36-46); HEMOGLOBIN 12.6 g/dL (12.0-16.0); LYMPHOCYTES # (AUTO) 1.7 K/uL (1.0-4.8); LYMPHOCYTES % (AUTO) 29.1 % (22.0-44.0); MEAN CORPUSCULAR HEMOGLOBIN 29.6 pg (26.0-34.0); MEAN CORPUSCULAR HGB CONC 32.7 G/dL (31.0-37.0); MEAN CORPUSCULAR VOLUME 91 fL (80-100); MONOCYTES # (AUTO) 0.5 K/uL (0.1-1.0); NEUTROPHILS # (AUTO) 3.5 K/uL (1.8-7.7); NEUTROPHILS % (AUTO) 59.3 % (40.0-70.0); PLATELET COUNT (AUTO) 119 K/uL (150-450); RED BLOOD CELL COUNT(AUTO) 4.25 MIL/uL (4.00-5.20); RED CELL DISTRIBUTION WIDTH 14.7 % (11.5-14.5)
[2021-08-14 20:38] LABS: ANION GAP 7 mmol/L (8-16); CALCIUM, TOTAL 9.1 mg/dL (8.8-10.5); CARBON DIOXIDE 29 mmol/L (22-29); CHLORIDE 106 mmol/L (98-107); CREATININE 1.05 mg/dL (0.60-1.30); GLUCOSE,RANDOM 114 mg/dL (70-110); POTASSIUM 3.7 mmol/L (3.5-5.1); SODIUM SERUM 142 mmol/L (136-145); UREA NITROGEN, BLOOD 18 mg/dL (7-18)
[2021-08-14 20:41] LABS: GLOMERULAR FILTR. RATE CALC 54 mL/min (>60)
[2021-08-14 20:43] LABS: ALANINE AMINOTRANSFERASE 28 U/L (12-78); ALKALINE PHOSPHATASE 108 U/L (46-116); ASPARTATE AMINOTRANSFERASE 17 U/L (15-37); BILIRUBIN,TOTAL 0.3 mg/dL (0.1-1.0)
[2021-08-14 21:22] LABS: AMPHET/METH SCREEN,URINE NEGATIVE (NEGATIVE); BARBITURATE SCREEN, URINE NEGATIVE (NEGATIVE); BENZODIAZEPINES SCREEN,URINE NEGATIVE (NEGATIVE); CANNABINOID SCREEN,URINE NEGATIVE (NEGATIVE); COCAINE SCREEN,URINE NEGATIVE (NEGATIVE); METHADONE SCREEN, URINE NEGATIVE (NEGATIVE); OPIATE SCREEN,URINE NEGATIVE (NEGATIVE)
[2021-08-14 21:25] LABS: PHENCYCLIDINE SCREEN,URINE NEGATIVE (NEGATIVE)
[2021-08-14] MEDS ORDERED: LORazepam 1 MG TABLET PO ONE (22:15)
[2021-08-14] MEDS ORDERED: HALOPERIDOL 5 MG TABLET PO ONE (22:15)
[2021-08-14] MEDS ORDERED: BACITRACIN 0.9 GM PACKET OINTMENT TP ONE (22:30)
[2021-08-14] MEDS ORDERED: SODIUM CHLORIDE 0.9% 100 ML ONE (22:38)
[2021-08-14] MEDS ORDERED: IOHEXOL 300 MG/ML 100 ML VIAL ONE (22:38)
[2021-08-14] MEDS ORDERED: LORazepam 2 MG TABLET PO PRN (23:30)
[2021-08-15 01:31] VITALS: BP 135/81
[2021-08-15] MEDS ORDERED: DOCUSATE SODIUM 100 MG CAPSULE PO PRN (05:45)
[2021-08-15] MEDS ORDERED: OMEPRAZOLE 20 MG CAPSULE PO PRN (05:45)
[2021-08-15] MEDS ORDERED: MAGNESIUM HYDROXIDE SUSPENSION 30 ML UDCUP PO PRN (05:45)
[2021-08-15] MEDS ORDERED: MAG HYDROX/AL HYDROX/SIMETH ES 30 ML SUSPENSION UDCUP PO PRN (05:45)
[2021-08-15] MEDS ORDERED: ONDANSETRON HCL 4 MG TABLET PO PRN (05:45)
[2021-08-15] MEDS ORDERED: BACITRACIN 28 GM OINTMENT TP PRN (05:45)
[2021-08-15] MEDS ORDERED: ALBUTEROL SULFATE HFA 90 MCG/PUFF 8 GM INHALER IH PRN (05:45)
[2021-08-15] MEDS ORDERED: LOPERAMIDE HCL 2 MG CAPSULE PO PRN (05:45)
[2021-08-15] MEDS ORDERED: PETROLATUM,WHITE 28 GM JELLY TP PRN (05:45)
[2021-08-15] MEDS ORDERED: BENZOCAINE/MENTHOL LOZENGE PO PRN (05:45)
[2021-08-15] MEDS ORDERED: CloNIDine HCL 0.1 MG TABLET PO PRN (05:45)
[2021-08-15] MEDS: LEVOTHYROXINE SODIUM 25 MCG TABLET PO SCH (06:52)
[2021-08-15] MEDS ORDERED: DEXTROSE 50%-WATER 25 GM/50 ML SYRINGE IVP PRN (07:00)
[2021-08-15 07:15] LABS: GLUCOMETER DEV NAME(LOC) 3E.I 2; GLUCOSE,POINT OF CARE 124 MG/DL (70-110)
[2021-08-15 09:00] VITALS: BP 132/78
[2021-08-15] MEDS: PANTOPRAZOLE SODIUM 40 MG DR TABLET PO SCH (09:40)
[2021-08-15] MEDS: GABAPENTIN 300 MG CAPSULE PO SCH ×3 (09:41→16:14)
[2021-08-15] MEDS: FUROSEMIDE 20 MG TABLET PO SCH (09:41)
[2021-08-15] MEDS: ATORVASTATIN CALCIUM 20 MG TABLET PO SCH (09:41)
[2021-08-15] MEDS: HALOPERIDOL 5 MG TABLET PO PRN (09:41)
[2021-08-15 12:06] LABS: GLUCOMETER DEV NAME(LOC) 3E.I 2; GLUCOSE,POINT OF CARE 139 MG/DL (70-110)
[2021-08-15] MEDS: INSULIN LISPRO 100 UNITS/ML SQ PRN ×2 (12:32→22:12)
[2021-08-15 13:00] VITALS: BP 128/82
[2021-08-15] MEDS: DIVALPROEX SODIUM 500 MG DR TABLET PO SCH (16:14)
[2021-08-15 16:21] LABS: GLUCOMETER DEV NAME(LOC) 3E.I 2; GLUCOSE,POINT OF CARE 138 MG/DL (70-110)
[2021-08-15 16:56] VITALS: BP 137/88
[2021-08-15] MEDS: TraZODone HCL 100 MG TABLET PO SCH (21:21)
[2021-08-15] MEDS: QUEtiapine FUMARATE 300 MG TABLET PO SCH (21:21)
[2021-08-15 21:25] VITALS: BP 139/86
[2021-08-15] MEDS: ACETAMINOPHEN 325 MG TABLET PO PRN (21:32)
[2021-08-15 22:11] LABS: GLUCOMETER DEV NAME(LOC) 3E.I 2; GLUCOSE,POINT OF CARE 167 MG/DL (70-110)
[2021-08-16 06:07] LABS: GLUCOMETER DEV NAME(LOC) 3E.I 2; GLUCOSE,POINT OF CARE 142 MG/DL (70-110)
[2021-08-16] MEDS: LEVOTHYROXINE SODIUM 25 MCG TABLET PO SCH (06:40)
[2021-08-16] MEDS: MetFORMIN HCL 500 MG TABLET PO SCH (06:41)
[2021-08-16] MEDS: INSULIN LISPRO 100 UNITS/ML SQ PRN ×2 (06:42→20:23)
[2021-08-16 08:29] VITALS: BP 109/67
[2021-08-16] MEDS: PANTOPRAZOLE SODIUM 40 MG DR TABLET PO SCH (09:16)
[2021-08-16] MEDS: FUROSEMIDE 20 MG TABLET PO SCH (09:16)
[2021-08-16] MEDS: ATORVASTATIN CALCIUM 20 MG TABLET PO SCH (09:16)
[2021-08-16] MEDS: GABAPENTIN 300 MG CAPSULE PO SCH ×3 (09:16→16:36)
[2021-08-16] MEDS: DIVALPROEX SODIUM 500 MG DR TABLET PO SCH ×2 (09:18→16:35)
[2021-08-16 11:55] LABS: GLUCOMETER DEV NAME(LOC) 3EX.; GLUCOSE,POINT OF CARE 130 MG/DL (70-110)
[2021-08-16] MEDS: HALOPERIDOL 5 MG TABLET PO PRN (18:48)
[2021-08-16 20:16] LABS: GLUCOMETER DEV NAME(LOC) 3E.I 2; GLUCOSE,POINT OF CARE 145 MG/DL (70-110)
[2021-08-16] MEDS: QUEtiapine FUMARATE 300 MG TABLET PO SCH (20:24)
[2021-08-16] MEDS: TraZODone HCL 100 MG TABLET PO SCH (20:24)
[2021-08-16 21:02] VITALS: BP 151/81
[2021-08-17] MEDS: ZOLPIDEM TARTRATE 10 MG TABLET PO PRN (01:27)
[2021-08-17 02:11] VITALS: BP 144/79
[2021-08-17] MEDS: LEVOTHYROXINE SODIUM 25 MCG TABLET PO SCH (06:56)
[2021-08-17] MEDS: MetFORMIN HCL 500 MG TABLET PO SCH (06:56)
[2021-08-17 07:06] LABS: GLUCOMETER DEV NAME(LOC) 3E.I 2; GLUCOSE,POINT OF CARE 135 MG/DL (70-110)
[2021-08-17 08:37] VITALS: BP 98/60
[2021-08-17] MEDS: GABAPENTIN 300 MG CAPSULE PO SCH ×3 (08:45→16:20)
[2021-08-17] MEDS: PANTOPRAZOLE SODIUM 40 MG DR TABLET PO SCH (08:45)
[2021-08-17] MEDS: ATORVASTATIN CALCIUM 20 MG TABLET PO SCH (08:45)
[2021-08-17] MEDS: DIVALPROEX SODIUM 500 MG DR TABLET PO SCH ×2 (08:45→16:20)
[2021-08-17] MEDS: FUROSEMIDE 20 MG TABLET PO SCH (08:45)
[2021-08-17 11:41] LABS: GLUCOMETER DEV NAME(LOC) 3E.I 2; GLUCOSE,POINT OF CARE 173 MG/DL (70-110)
[2021-08-17] MEDS: INSULIN LISPRO 100 UNITS/ML SQ PRN ×3 (12:08→21:47)
[2021-08-17 16:11] VITALS: BP 114/65
[2021-08-17 16:21] LABS: GLUCOMETER DEV NAME(LOC) 3E.I 2; GLUCOSE,POINT OF CARE 142 MG/DL (70-110)
[2021-08-17] MEDS: QUEtiapine FUMARATE 300 MG TABLET PO SCH (20:02)
[2021-08-17] MEDS: TraZODone HCL 100 MG TABLET PO SCH (20:02)
[2021-08-17 20:20] LABS: GLUCOMETER DEV NAME(LOC) 3E.I 2; GLUCOSE,POINT OF CARE 165 MG/DL (70-110)
[2021-08-17] MEDS ORDERED: PRAZ2 PO (20:22)
[2021-08-17] MEDS ORDERED: METF-1211 PO (20:22)
[2021-08-17] MEDS ORDERED: ARIP10642 IM (20:24)
[2021-08-18 00:25] VITALS: BP 138/77
[2021-08-18] MEDS: ZOLPIDEM TARTRATE 10 MG TABLET PO PRN (00:31)
[2021-08-18 00:32] VITALS: BP 132/78
[2021-08-18] MEDS: IBUPROFEN 600 MG TABLET PO PRN (00:32)
[2021-08-18 04:28] VITALS: BP 107/76
[2021-08-18 06:21] LABS: GLUCOMETER DEV NAME(LOC) 3E.I 2; GLUCOSE,POINT OF CARE 116 MG/DL (70-110)
[2021-08-18] MEDS: INSULIN LISPRO 100 UNITS/ML SQ PRN ×3 (06:33→17:36)
[2021-08-18] MEDS: LEVOTHYROXINE SODIUM 25 MCG TABLET PO SCH (06:42)
[2021-08-18] MEDS: MetFORMIN HCL 500 MG TABLET PO SCH (06:44)
[2021-08-18 08:00] VITALS: BP 102/64
[2021-08-18] MEDS: DIVALPROEX SODIUM 500 MG DR TABLET PO SCH ×2 (09:08→16:15)
[2021-08-18] MEDS: GABAPENTIN 300 MG CAPSULE PO SCH ×3 (09:08→16:16)
[2021-08-18] MEDS: FUROSEMIDE 20 MG TABLET PO SCH (09:09)
[2021-08-18] MEDS: PANTOPRAZOLE SODIUM 40 MG DR TABLET PO SCH (09:09)
[2021-08-18] MEDS: ATORVASTATIN CALCIUM 20 MG TABLET PO SCH (09:09)
[2021-08-18 11:21] LABS: GLUCOMETER DEV NAME(LOC) 3EX.; GLUCOSE,POINT OF CARE 175 MG/DL (70-110)
[2021-08-18 16:27] LABS: GLUCOMETER DEV NAME(LOC) 3E.I 2; GLUCOSE,POINT OF CARE 144 MG/DL (70-110)
[2021-08-18] MEDS: TraZODone HCL 100 MG TABLET PO SCH ×2 (20:40→21:00)
[2021-08-18] MEDS: QUEtiapine FUMARATE 300 MG TABLET PO SCH ×2 (20:40→21:00)
[2021-08-19 04:37] VITALS: BP 118/74
[2021-08-19] MEDS: ACETAMINOPHEN 325 MG TABLET PO PRN (04:43)
[2021-08-19 05:51] LABS: GLUCOMETER DEV NAME(LOC) 3E.I 2; GLUCOSE,POINT OF CARE 132 MG/DL (70-110)
[2021-08-19] MEDS: LEVOTHYROXINE SODIUM 25 MCG TABLET PO SCH (06:12)
[2021-08-19] MEDS: MetFORMIN HCL 500 MG TABLET PO SCH (06:32)
[2021-08-19] MEDS: DIVALPROEX SODIUM 500 MG DR TABLET PO SCH ×2 (08:30→16:48)
[2021-08-19] MEDS: PANTOPRAZOLE SODIUM 40 MG DR TABLET PO SCH (08:30)
[2021-08-19] MEDS: GABAPENTIN 300 MG CAPSULE PO SCH ×3 (08:30→16:48)
[2021-08-19] MEDS: FUROSEMIDE 20 MG TABLET PO SCH (08:31)
[2021-08-19] MEDS: ATORVASTATIN CALCIUM 20 MG TABLET PO SCH (08:31)
[2021-08-19 09:00] VITALS: BP 140/67
[2021-08-19] MEDS: INSULIN LISPRO 100 UNITS/ML SQ PRN ×2 (12:22→17:29)
[2021-08-19 12:46] LABS: GLUCOMETER DEV NAME(LOC) 3EX.; GLUCOSE,POINT OF CARE 160 MG/DL (70-110)
[2021-08-19 17:06] VITALS: BP 140/81
[2021-08-19 17:36] LABS: GLUCOMETER DEV NAME(LOC) 3E.I 2; GLUCOSE,POINT OF CARE 162 MG/DL (70-110)
[2021-08-19] MEDS: IBUPROFEN 600 MG TABLET PO PRN (17:38)
[2021-08-19] MEDS: QUEtiapine FUMARATE 300 MG TABLET PO SCH (20:47)
[2021-08-19] MEDS: TraZODone HCL 100 MG TABLET PO SCH (20:48)
[2021-08-19 21:16] LABS: GLUCOMETER DEV NAME(LOC) 3EX.; GLUCOSE,POINT OF CARE 127 MG/DL (70-110)
[2021-08-20 01:50] VITALS: BP 133/75
[2021-08-20 06:26] LABS: GLUCOMETER DEV NAME(LOC) 3E.I 2; GLUCOSE,POINT OF CARE 131 MG/DL (70-110)
[2021-08-20] MEDS: LEVOTHYROXINE SODIUM 25 MCG TABLET PO SCH (07:04)
[2021-08-20] MEDS: MetFORMIN HCL 500 MG TABLET PO SCH (07:05)
[2021-08-20 07:06] LABS: COVID AG,FIA SOURCE NASAL SWAB
[2021-08-20] MEDS: GABAPENTIN 300 MG CAPSULE PO SCH ×3 (08:33→16:33)
[2021-08-20] MEDS: PANTOPRAZOLE SODIUM 40 MG DR TABLET PO SCH (08:33)
[2021-08-20] MEDS: DIVALPROEX SODIUM 500 MG DR TABLET PO SCH ×2 (08:33→16:33)
[2021-08-20] MEDS: FUROSEMIDE 20 MG TABLET PO SCH (08:34)
[2021-08-20] MEDS: ATORVASTATIN CALCIUM 20 MG TABLET PO SCH (08:34)
[2021-08-20 09:44] VITALS: BP 125/77
[2021-08-20 11:41] LABS: GLUCOMETER DEV NAME(LOC) 3EX.; GLUCOSE,POINT OF CARE 109 MG/DL (70-110)
[2021-08-20 16:00] VITALS: BP 146/84
[2021-08-20] MEDS: INSULIN LISPRO 100 UNITS/ML SQ PRN ×2 (16:32→22:20)
[2021-08-20 16:36] LABS: GLUCOMETER DEV NAME(LOC) 3E.I 2; GLUCOSE,POINT OF CARE 180 MG/DL (70-110)
[2021-08-20] MEDS: QUEtiapine FUMARATE 300 MG TABLET PO SCH (21:02)
[2021-08-20] MEDS: TraZODone HCL 100 MG TABLET PO SCH (21:03)
[2021-08-20 21:56] LABS: GLUCOMETER DEV NAME(LOC) 3E.I 2; GLUCOSE,POINT OF CARE 191 MG/DL (70-110)
[2021-08-20] MEDS: ZOLPIDEM TARTRATE 10 MG TABLET PO PRN (22:42)
[2021-08-21 03:10] VITALS: BP 118/72
[2021-08-21] MEDS: IBUPROFEN 600 MG TABLET PO PRN (03:19)
[2021-08-21 06:31] LABS: GLUCOMETER DEV NAME(LOC) 3E.I 2; GLUCOSE,POINT OF CARE 136 MG/DL (70-110)
[2021-08-21] MEDS: INSULIN LISPRO 100 UNITS/ML SQ PRN ×2 (06:35→17:30)
[2021-08-21] MEDS: LEVOTHYROXINE SODIUM 25 MCG TABLET PO SCH (06:46)
[2021-08-21] MEDS: MetFORMIN HCL 500 MG TABLET PO SCH (06:46)
[2021-08-21 06:52] LABS: BASOPHILS % (AUTO) 0.9 % (0.0-2.0); EOSINOPHILS % (AUTO) 3.8 % (1.0-6.0); HEMATOCRIT 35.3 % (36-46); HEMOGLOBIN 11.9 g/dL (12.0-16.0); LYMPHOCYTES # (AUTO) 1.4 K/uL (1.0-4.8); LYMPHOCYTES % (AUTO) 29.3 % (22.0-44.0); MEAN CORPUSCULAR HEMOGLOBIN 30.1 pg (26.0-34.0); MEAN CORPUSCULAR HGB CONC 33.6 G/dL (31.0-37.0); MEAN CORPUSCULAR VOLUME 90 fL (80-100); MONOCYTES # (AUTO) 0.4 K/uL (0.1-1.0); MONOCYTES % (AUTO) 8.9 % (2.0-9.0); NEUTROPHILS # (AUTO) 2.7 K/uL (1.8-7.7); NEUTROPHILS % (AUTO) 57.1 % (40.0-70.0); PLATELET COUNT (AUTO) 122 K/uL (150-450); RED BLOOD CELL COUNT(AUTO) 3.94 MIL/uL (4.00-5.20); RED CELL DISTRIBUTION WIDTH 14.9 % (11.5-14.5)
[2021-08-21 07:15] LABS: ALANINE AMINOTRANSFERASE 18 U/L (12-78); ALBUMIN 2.5 g/dL (3.4-5.0); ALKALINE PHOSPHATASE 76 U/L (46-116); AMYLASE 49 U/L (25-115); ANION GAP 3 mmol/L (8-16); ASPARTATE AMINOTRANSFERASE 12 U/L (15-37); BILIRUBIN,TOTAL 0.3 mg/dL (0.1-1.0); CALCIUM, TOTAL 8.7 mg/dL (8.8-10.5); CARBON DIOXIDE 33 mmol/L (22-29); CHLORIDE 104 mmol/L (98-107); CREATININE 0.83 mg/dL (0.60-1.30); GLUCOSE,RANDOM 145 mg/dL (70-110); LIPASE 65 U/L (73-393); POTASSIUM 4.4 mmol/L (3.5-5.1); SODIUM SERUM 140 mmol/L (136-145); TOTAL PROTEIN, SERUM 5.2 g/dL (6.4-8.2); UREA NITROGEN, BLOOD 19 mg/dL (7-18)
[2021-08-21 07:32] LABS: GLOMERULAR FILTR. RATE CALC > 60 mL/min (>60)
[2021-08-21 08:19] VITALS: BP 117/77
[2021-08-21] MEDS: ATORVASTATIN CALCIUM 20 MG TABLET PO SCH (08:38)
[2021-08-21] MEDS: GABAPENTIN 300 MG CAPSULE PO SCH ×3 (08:38→16:06)
[2021-08-21] MEDS: DIVALPROEX SODIUM 500 MG DR TABLET PO SCH ×2 (08:38→16:06)
[2021-08-21] MEDS: PANTOPRAZOLE SODIUM 40 MG DR TABLET PO SCH (08:38)
[2021-08-21] MEDS: FUROSEMIDE 20 MG TABLET PO SCH (08:38)
[2021-08-21 11:37] LABS: GLUCOMETER DEV NAME(LOC) 3E.I 2; GLUCOSE,POINT OF CARE 100 MG/DL (70-110)
[2021-08-21 16:26] VITALS: BP 139/77
[2021-08-21 16:31] LABS: GLUCOMETER DEV NAME(LOC) 3EX.; GLUCOSE,POINT OF CARE 142 MG/DL (70-110)
[2021-08-21] MEDS: QUEtiapine FUMARATE 300 MG TABLET PO SCH (20:43)
[2021-08-21] MEDS: TraZODone HCL 100 MG TABLET PO SCH (20:44)
[2021-08-21 20:46] LABS: GLUCOMETER DEV NAME(LOC) 3E.I 2; GLUCOSE,POINT OF CARE 222 MG/DL (70-110)
[2021-08-21] MEDS: ZOLPIDEM TARTRATE 10 MG TABLET PO PRN (21:41)
[2021-08-22 06:16] LABS: GLUCOMETER DEV NAME(LOC) 3EX.; GLUCOSE,POINT OF CARE 163 MG/DL (70-110)
[2021-08-22] MEDS: MetFORMIN HCL 500 MG TABLET PO SCH (06:43)
[2021-08-22] MEDS: LEVOTHYROXINE SODIUM 25 MCG TABLET PO SCH (06:43)
[2021-08-22] MEDS: INSULIN LISPRO 100 UNITS/ML SQ PRN ×3 (06:44→21:30)
[2021-08-22 08:00] VITALS: BP 126/76
[2021-08-22] MEDS: ATORVASTATIN CALCIUM 20 MG TABLET PO SCH (08:35)
[2021-08-22] MEDS: PANTOPRAZOLE SODIUM 40 MG DR TABLET PO SCH (08:35)
[2021-08-22] MEDS: FUROSEMIDE 20 MG TABLET PO SCH (08:36)
[2021-08-22] MEDS: DIVALPROEX SODIUM 500 MG DR TABLET PO SCH ×2 (08:36→16:03)
[2021-08-22] MEDS: GABAPENTIN 300 MG CAPSULE PO SCH ×3 (08:36→16:03)
[2021-08-22] MEDS: ACETAMINOPHEN 325 MG TABLET PO PRN (11:10)
[2021-08-22 11:14] VITALS: BP 130/78
[2021-08-22] MEDS: IBUPROFEN 600 MG TABLET PO PRN ×2 (11:14→22:20)
[2021-08-22 11:45] LABS: GLUCOMETER DEV NAME(LOC) 3E.I 2; GLUCOSE,POINT OF CARE 141 MG/DL (70-110)
[2021-08-22 16:21] LABS: GLUCOMETER DEV NAME(LOC) 3EX.; GLUCOSE,POINT OF CARE 136 MG/DL (70-110)
[2021-08-22 16:35] VITALS: BP 99/69
[2021-08-22] MEDS: QUEtiapine FUMARATE 300 MG TABLET PO SCH (20:52)
[2021-08-22] MEDS: TraZODone HCL 100 MG TABLET PO SCH (20:53)
[2021-08-22 21:41] LABS: GLUCOMETER DEV NAME(LOC) 3E.I 2; GLUCOSE,POINT OF CARE 155 MG/DL (70-110)
[2021-08-22] MEDS: ZOLPIDEM TARTRATE 10 MG TABLET PO PRN (22:23)
[2021-08-22 22:25] VITALS: BP 131/68
[2021-08-23 03:14] VITALS: BP 103/47
[2021-08-23 05:48] VITALS: BP 103/48
[2021-08-23 06:51] LABS: GLUCOMETER DEV NAME(LOC) 3E.I 2; GLUCOSE,POINT OF CARE 119 MG/DL (70-110)
[2021-08-23] MEDS: LEVOTHYROXINE SODIUM 25 MCG TABLET PO SCH (06:53)
[2021-08-23] MEDS: MetFORMIN HCL 500 MG TABLET PO SCH (06:54)
[2021-08-23 08:00] VITALS: BP 130/86
[2021-08-23] MEDS: GABAPENTIN 300 MG CAPSULE PO SCH ×2 (08:35→12:23)
[2021-08-23] MEDS: PANTOPRAZOLE SODIUM 40 MG DR TABLET PO SCH (08:35)
[2021-08-23] MEDS: FUROSEMIDE 20 MG TABLET PO SCH (08:35)
[2021-08-23] MEDS: ATORVASTATIN CALCIUM 20 MG TABLET PO SCH (08:35)
[2021-08-23] MEDS: DIVALPROEX SODIUM 500 MG DR TABLET PO SCH (08:35)
[2021-08-23] MEDS: INSULIN LISPRO 100 UNITS/ML SQ PRN (11:26)
[2021-08-23 11:36] LABS: GLUCOMETER DEV NAME(LOC) 3E.I 2; GLUCOSE,POINT OF CARE 179 MG/DL (70-110)
[2021-08-23] MEDS ORDERED: METF-1211 PO ×2 (14:06→22:10)
[2021-08-23] MEDS ORDERED: TRAZ-257 PO (14:07)
[2021-08-23] MEDS ORDERED: QUET300T2 PO (14:07)
[2021-08-23] MEDS ORDERED: LEVO25TA9 PO ×2 (14:09→22:10)
[2021-08-23 16:00] VITALS: BP 103/69
[2021-08-23] MEDS ORDERED: ATOR20TA65 PO (22:10)
[2021-08-23] MEDS ORDERED: POTA-92 PO (22:10)
[2021-08-23] MEDS ORDERED: FURO20TA4 PO (22:10)
== END 2021-08-23 17:00 | disposition home or self-care (01) | DRG 885 ==
LOC: EMS 19:40 → 3EX 23:48
PROVIDERS: ADMIT Psychiatry & Neurology Psychiatry; ATTEND Psychiatry & Neurology Psychiatry
DX: F25.9 Schizoaffective disorder, unspecified (principal); Z68.43 Body mass index [BMI] 50.0-59.9, adult; Z20.822 Contact with and (suspected) exposure to COVID-19; F29 Unspecified psychosis not due to a substance or known physiological condition; K59.00 Constipation, unspecified; F41.9 Anxiety disorder, unspecified; G47.00 Insomnia, unspecified; E66.01 Morbid (severe) obesity due to excess calories; I10 Essential (primary) hypertension; E03.9 Hypothyroidism, unspecified; M17.0 Bilateral primary osteoarthritis of knee; E88.81 Metabolic syndrome and other insulin resistance; Z88.5 Allergy status to narcotic agent; Z88.8 Allergy status to other drugs, medicaments and biological substances; Z87.891 Personal history of nicotine dependence
CPT/HCPCS: 74019; 74177; 80053; 82150; 82962; 83690; 85025; 87081; 99285; G0378; G0480; J7050; Q9967

== ENCOUNTER 2024-04-08 18:02 | Inpatient (IN) | payer MEDICARE, MEDICAID ==
[~2024-04-08] VITALS: Ht 157.5 cm; Wt 142.4 kg
[~2024-04-08 18:02] MED LIST changes: +ATOR20TA65 PO; +DIVA-112 PO; +FURO20TA4 PO; +GABA-1181 PO; +MELA5TAB40 PO; +OMEG-135 PO; -PRAZ1 PO; -TRAZ-257 PO
[2024-04-08] MEDS ORDERED: HALOPERIDOL 5 MG TABLET PO PRN (18:15)
[2024-04-08 21:33] VITALS: BP 116/79; PULSE 72; RESP 18; TEMP 98; O2SAT 97
[2024-04-08 21:45] LABS: GLUCOMETER DEV NAME(LOC) BV2X.3; GLUCOSE,POINT OF CARE 158 MG/DL (70-110)
[2024-04-08] MEDS: ZOLPIDEM TARTRATE 10 MG TABLET PO PRN (21:48)
[2024-04-09] MEDS ORDERED: MAGNESIUM HYDROXIDE SUSPENSION 30 ML UDCUP PO PRN (05:30)
[2024-04-09] MEDS ORDERED: CloNIDine HCL 0.1 MG TABLET PO PRN (05:30)
[2024-04-09] MEDS ORDERED: DOCUSATE SODIUM 100 MG CAPSULE PO PRN (05:30)
[2024-04-09] MEDS ORDERED: ONDANSETRON 4 MG TABLET PO PRN (05:30)
[2024-04-09] MEDS ORDERED: GuaiFENesin/D-METHORPHAN [SUGAR-FREE] 200-20MG/10 ML SYRUP UDCUP PO PRN (05:30)
[2024-04-09] MEDS ORDERED: LOPERAMIDE HCL 2 MG CAPSULE PO PRN (05:30)
[2024-04-09] MEDS ORDERED: ALBUTEROL SULFATE HFA 90 MCG/PUFF 8 GM INHALER IH PRN (05:30)
[2024-04-09] MEDS ORDERED: MAG HYDROX/ALUMINUM HYD/SIMETH ES 30 ML SUSPENSION UDCUP PO PRN (05:30)
[2024-04-09] MEDS ORDERED: PETROLATUM,WHITE 28 GM JELLY TP PRN (05:30)
[2024-04-09] MEDS: LEVOTHYROXINE SODIUM 25 MCG TABLET PO SCH (06:43)
[2024-04-09] MEDS: MetFORMIN HCL 500 MG TABLET PO SCH (06:43)
[2024-04-09 07:25] LABS: GLUCOMETER DEV NAME(LOC) BV2X.3; GLUCOSE,POINT OF CARE 160 MG/DL (70-110)
[2024-04-09 08:00] VITALS: BP 127/79; PULSE 82; RESP 17; TEMP 97.4; O2SAT 96
[2024-04-09 08:28] LABS: BASOPHILS % (AUTO) 0.4 % (0.0-2.0); EOSINOPHILS % (AUTO) 3.1 % (1.0-6.0); HEMATOCRIT 41.9 % (36-46); HEMOGLOBIN 13.3 g/dL (12.0-16.0); HEMOGLOBIN A1C 6.3 % (3.8-5.6); LYMPHOCYTES # (AUTO) 1.8 K/uL (1.0-4.8); MEAN CORPUSCULAR HEMOGLOBIN 29.6 pg (26.0-34.0); MEAN CORPUSCULAR HGB CONC 31.8 G/dL (31.0-37.0); MEAN CORPUSCULAR VOLUME 93 fL (80-100); MONOCYTES # (AUTO) 0.5 K/uL (0.1-1.0); MONOCYTES % (AUTO) 9.7 % (2.0-9.0); NEUTROPHILS # (AUTO) 2.9 K/uL (1.8-7.7); NEUTROPHILS % (AUTO) 53.8 % (40.0-70.0); PLATELET COUNT (AUTO) 128 K/uL (150-450); RED BLOOD CELL COUNT(AUTO) 4.51 MIL/uL (4.00-5.20); RED CELL DISTRIBUTION WIDTH 16.4 % (11.5-14.5); WHITE BLOOD COUNT (AUTO) 5.3 K/uL (4.5-11.0)
[2024-04-09 08:35] LABS: ALANINE AMINOTRANSFERASE 14 U/L (12-78); ALBUMIN 2.7 g/dL (3.4-5.0); ALKALINE PHOSPHATASE 81 U/L (46-116); ANION GAP 5 mmol/L (8-16); ASPARTATE AMINOTRANSFERASE 16 U/L (15-37); BILIRUBIN,TOTAL 0.4 mg/dL (0.1-1.0); CALCIUM, TOTAL 8.7 mg/dL (8.8-10.5); CARBON DIOXIDE 33 mmol/L (22-29); CHLORIDE 104 mmol/L (98-107); CHOL/HDL RATIO 2.1 (3.9-5.7); CHOLESTEROL 95 mg/dL (131-200); CREATININE 0.66 mg/dL (0.60-1.30); FREE T4 (FREE THYROXINE) 1.01 ng/dL (0.76-1.46); GLOMERULAR FILTR. RATE CALC > 60 mL/min (>60); GLUCOSE,RANDOM 132 mg/dL (70-110); HDL CHOLESTEROL 46 mg/dL (40-60); LDL CHOL (CALC.) 25 mg/dL (0-130); POTASSIUM 4.5 mmol/L (3.5-5.1); SODIUM SERUM 142 mmol/L (136-145); T4 (THYROXINE) 6.3 mcg/dL (4.7-13.3); TOTAL PROTEIN, SERUM 6.1 g/dL (6.4-8.2); TRIGLYCERIDES 119 mg/dL (15-150); UREA NITROGEN, BLOOD 18 mg/dL (7-18)
[2024-04-09] MEDS ORDERED: MetFORMIN HCL 500 MG TABLET PO SCH (09:00)
[2024-04-09] MEDS ORDERED: LEVOTHYROXINE SODIUM 25 MCG TABLET PO SCH (09:00)
[2024-04-09] MEDS: ATORVASTATIN CALCIUM 20 MG TABLET PO SCH (09:46)
[2024-04-09] MEDS: FUROSEMIDE 20 MG TABLET PO SCH (09:46)
[2024-04-09] MEDS: CARVEDILOL 12.5 MG TABLET PO SCH (09:47)
[2024-04-09] MEDS: PANTOPRAZOLE SODIUM 40 MG DR TABLET PO SCH (09:47)
[2024-04-09] MEDS: DIVALPROEX SODIUM 500 MG DR TABLET PO SCH (11:06)
[2024-04-09] MEDS: LORazepam 2 MG TABLET PO PRN (13:21)
[2024-04-09 16:45] LABS: GLUCOMETER DEV NAME(LOC) BV2X.3; GLUCOSE,POINT OF CARE 193 MG/DL (70-110)
[2024-04-09] MEDS ORDERED: OLAN10TA74 PO (20:09)
[2024-04-09 20:11] VITALS: BP 117/46; PULSE 80; RESP 18; TEMP 98.1; O2SAT 95
[2024-04-09] MEDS ORDERED: SERT-439 PO (20:11)
[2024-04-09] MEDS: MELATONIN 5 MG TABLET PO SCH (20:58)
[2024-04-09] MEDS: OLANZapine 10 MG TABLET PO SCH (21:00)
[2024-04-09] MEDS ORDERED: QUEtiapine FUMARATE 300 MG TABLET PO SCH (21:00)
[2024-04-09] MEDS ORDERED: DIVALPROEX SODIUM 250 MG DR TABLET PO SCH (21:00)
[2024-04-09] MEDS ORDERED: ATORVASTATIN CALCIUM 20 MG TABLET PO SCH (21:00)
[2024-04-10 03:00] VITALS: RESP 18
[2024-04-10] MEDS: IBUPROFEN 400 MG TABLET PO PRN (03:01)
[2024-04-10 03:45] VITALS: RESP 18
[2024-04-10] MEDS: ACETAMINOPHEN 325 MG TABLET PO PRN (03:47)
[2024-04-10 04:47] VITALS: RESP 18
[2024-04-10 06:20] LABS: GLUCOMETER DEV NAME(LOC) BV2X.3; GLUCOSE,POINT OF CARE 141 MG/DL (70-110)
[2024-04-10 08:23] VITALS: BP 123/71; PULSE 79; RESP 18; TEMP 97.3; O2SAT 95
[2024-04-10 08:31] LABS: HEMOGLOBIN A1C 6.5 % (3.8-5.6)
[2024-04-10] MEDS: DIVALPROEX SODIUM 250 MG DR TABLET PO SCH (08:31)
[2024-04-10] MEDS: SERTRALINE HCL 50 MG TABLET PO SCH (08:32)
[2024-04-10 08:39] LABS: CHOL/HDL RATIO 2.4 (3.9-5.7); THYROID STIMULATING HORMONE 4.27 uIU/mL (0.36-3.74)
[2024-04-10 17:51] LABS: GLUCOMETER DEV NAME(LOC) BV2X.3; GLUCOSE,POINT OF CARE 276 MG/DL (70-110)
[2024-04-10 21:09] VITALS: BP 105/61; PULSE 70; RESP 15; TEMP 97.2; O2SAT 94
[2024-04-11 06:05] LABS: GLUCOMETER DEV NAME(LOC) BV2X.3; GLUCOSE,POINT OF CARE 133 MG/DL (70-110)
[2024-04-11 08:55] VITALS: BP 158/84; PULSE 78; RESP 18; TEMP 97.7; O2SAT 95
[2024-04-11 14:01] VITALS: RESP 18; O2SAT 95
[2024-04-11 15:01] VITALS: RESP 18; O2SAT 100
[2024-04-11] MEDS ORDERED: FURO20TA4 PO (16:31)
[2024-04-11] MEDS ORDERED: SERT-439 PO (16:31)
[2024-04-11] MEDS ORDERED: DIVA-111 PO (16:31)
[2024-04-11] MEDS ORDERED: METF-1211 PO (16:31)
[2024-04-11] MEDS ORDERED: CARV12 PO (16:31)
[2024-04-11] MEDS ORDERED: OLAN10TA74 PO (16:31)
[2024-04-11] MEDS ORDERED: ATOR20TA65 PO (16:31)
[2024-04-11] MEDS ORDERED: PANT-31 PO (16:31)
[2024-04-11] MEDS ORDERED: LEVO25TA9 PO (16:31)
[2024-04-11] MEDS ORDERED: MELA5TAB40 PO (16:31)
[2024-04-11 16:41] LABS: GLUCOMETER DEV NAME(LOC) BV2X.3; GLUCOSE,POINT OF CARE 177 MG/DL (70-110)
[2024-04-11 20:25] VITALS: BP 133/78; PULSE 73; RESP 18; TEMP 97.9; O2SAT 97
[2024-04-12 05:25] VITALS: BP 143/74; PULSE 82; RESP 18; TEMP 97.6
[2024-04-12 06:30] LABS: GLUCOMETER DEV NAME(LOC) BV2X.3; GLUCOSE,POINT OF CARE 176 MG/DL (70-110)
[2024-04-12 08:28] VITALS: BP 138/98; PULSE 86; RESP 18; TEMP 98; O2SAT 95
[2024-04-12 08:41] LABS: HEMATOCRIT 42.9 % (36-46); HEMOGLOBIN 13.9 g/dL (12.0-16.0); MEAN CORPUSCULAR HEMOGLOBIN 29.9 pg (26.0-34.0); MEAN CORPUSCULAR HGB CONC 32.3 G/dL (31.0-37.0); MEAN CORPUSCULAR VOLUME 93 fL (80-100); PLATELET COUNT (AUTO) 138 K/uL (150-450); RED BLOOD CELL COUNT(AUTO) 4.63 MIL/uL (4.00-5.20); RED CELL DISTRIBUTION WIDTH 16.2 % (11.5-14.5); WHITE BLOOD COUNT (AUTO) 6.7 K/uL (4.5-11.0)
[2024-04-12 08:52] LABS: ANION GAP 3 mmol/L (8-16); CALCIUM, TOTAL 8.7 mg/dL (8.8-10.5); CARBON DIOXIDE 36 mmol/L (22-29); CHLORIDE 102 mmol/L (98-107); CREATININE 0.77 mg/dL (0.60-1.30); GLOMERULAR FILTR. RATE CALC > 60 mL/min (>60); GLUCOSE,RANDOM 180 mg/dL (70-110); POTASSIUM 4.4 mmol/L (3.5-5.1); SODIUM SERUM 141 mmol/L (136-145); UREA NITROGEN, BLOOD 24 mg/dL (7-18)
[2024-04-12 09:09] LABS: BAND NEUTROPHILS % (MANUAL) 0 % (0-5)
[2024-04-12 09:11] LABS: EOSINOPHILS % (MANUAL) 2 % (1-6); LYMPHOCYTES % (MANUAL) 28 % (22-44); MONOCYTES % (MANUAL) 8 % (2-9); SEGMENTED NEUTROPHILS % 62 % (40-70); TOTAL CELLS COUNTED 100
== END 2024-04-12 16:03 | disposition home or self-care (01) | DRG 885 ==
LOC: B2X 19:29
PROVIDERS: ADMIT Psychiatry & Neurology Psychiatry; ATTEND Psychiatry & Neurology Psychiatry
PROC: GZHZZZZ Group Psychotherapy (ICD-10-PCS; principal; 2024-04-09)
PROC: GZ51ZZZ Individual Psychotherapy, Behavioral (ICD-10-PCS; 2024-04-09)
DX: F25.0 Schizoaffective disorder, bipolar type (principal); I11.0 Hypertensive heart disease with heart failure; R45.851 Suicidal ideations; Z68.43 Body mass index [BMI] 50.0-59.9, adult; E66.01 Morbid (severe) obesity due to excess calories; I50.9 Heart failure, unspecified; K59.00 Constipation, unspecified; E11.9 Type 2 diabetes mellitus without complications; E03.9 Hypothyroidism, unspecified; E78.5 Hyperlipidemia, unspecified; G89.4 Chronic pain syndrome; F41.9 Anxiety disorder, unspecified; G47.00 Insomnia, unspecified; K21.9 Gastro-esophageal reflux disease without esophagitis; Z79.899 Other long term (current) drug therapy; Z88.0 Allergy status to penicillin; Z88.5 Allergy status to narcotic agent; Z91.410 Personal history of adult physical and sexual abuse
CPT/HCPCS: 80048; 80053; 80061; 82962; 83036; 84436; 84439; 84443; 85025